=== PATIENT | male | born 1990 | race Caucasian/White ===

== ENCOUNTER 2020-07-08 06:37 | Emergency (ER) | payer OTHER, SELFPAY ==
--- NOTE | 2020-07-08 07:24 | ED.DENTAL ---
HPI - Dental/Oral General Chief complaint: Dental/Oral Stated complaint: dental pain Time Seen by Provider: 07/08/20 07:24 Source: patient Mode of arrival: ambulatory Limitations: no limitations History of Present Illness MD Complaint: tooth pain Location: Tooth # Teeth map: 1. Onset (ago): day(s) (2) Duration: constant Severity: severe Relieving factors: nothing Exacerbating factors: chewing, cold and heat Context: history of dental caries and poor dental care Associated symptoms: gum swelling Treatment prior to arrival: none Related Data Previous Rx's Medication Instructions Recorded amoxicillin-pot clavulanate 1 tab PO BID #14 tab 07/08/20 [Augmentin] hydrocodone-acetaminophen 1 tab PO Q6H PRN #8 tab 07/08/20 ibuprofen 600 mg PO Q6H PRN #30 tab 07/08/20 Allergies Allergy/AdvReac Type Severity Reaction Status Date / Time No Known Allergies Allergy Verified 07/08/20 07:26 Review of Systems Review of Systems: Constitutional : No Fever, No Chills ENT/Mouth : No swallowing difficulty, no change in voice, positive dental pain, positive jaw pain, no facial swelling Eyes: No Eye Pain, No Swelling Cardiovascular : No Chest Pain, No SOB Respiratory : No Cough, No Sputum Gastrointestinal : No Nausea, No Vomiting, No Diarrhea Genitourinary : No Dysuria Musculoskeletal : No Myalgias Skin : No rash Neuro : No Weakness, No Numbness, No Headache PMFSH Past Medical History Attestation statement: The following information was validated with the patient. Medical History No known health problems Social History Social History (Updated 07/08/20 @ 07:33 by Chloe Mora DO) Smoking Status: Current every day smoker Use of substances other than those prescribed or required for medical reasons: No Advance Directives: No Advance Directives Information Provided: No Physical Exam Vital Signs: Vital Signs: Last Vital Signs Temp 98.1 F 07/08/20 07:27 Pulse 54 07/08/20 07:27 Resp 16 07/08/20 07:27 BP 159/84 H 07/08/20 07:27 Pulse Ox 99 07/08/20 07:27 Body Mass Index 20.0 Appearance: Alert. Oriented X3. No acute distress. Eyes: Pupils equal, round and reactive to light. ENT: Pharynx normal. R lower last molar - cracked decayed tooth, mild gum swelling and erythema no fluctuance no sublingual or submandibular swelling Neck: Normal inspection. Neck supple. CVS: Pulses normal. Respiratory: No respiratory distress. Abdomen: Soft and nontender. Skin: Skin warm and dry. Normal skin color. Extremities: No lower extremity edema. Neuro: Oriented X 3. No motor deficit. No sensory deficit. Procedures Nerve Block Nerve Block 1: Time out performed: Yes Local Anesthetic: lidocaine 1% Amount of anesthesia used (mL): 3 Side: right Nerve Blocks: other Intraoral Nerve Block: inferior alveolar Procedure Successful: Yes Patient Tolerated Procedure: well Complications: none MDM - Dental/Oral MDM Narrative Medical decision making narrative: 29 yo male with R lower molar dental pain - no abscess noted, no concern for deeper space infection, will provide dental block start on antibiotics and refer to dentist Discharge Plan Discharge Clinical Impression: Dental caries, Toothache Patient Disposition: Home, Self-Care Instructions: Toothache (ED) Additional Instructions: return to ED for any worsening symptoms or concerns please go to the dentist as soon as possible dental block - no hot or crunchy foods til it wears off Prescriptions: New hydrocodone-acetaminophen 5-325 mg tablet 1 tab PO Q6H PRN (Reason: pain) Qty: 8 RF: 0 ibuprofen 600 mg tablet 600 mg PO Q6H PRN (Reason: pain) Qty: 30 RF: 0 amoxicillin-pot clavulanate [Augmentin] 875-125 mg tablet 1 tab PO BID Qty: 14 RF: 0 Stand Alone Forms: Work/School Release
[2020-07-08 07:27] VITALS: BP 159/84; PULSE 54; RESP 16; TEMP 36.7; O2SAT 99
[2020-07-08] MEDS: Lidocaine HCl 2 % MPF 5 ML VIAL SUBCUT (07:48)
[2020-07-08] MEDS: Amoxicillin 500 MG CAPSULE PO (07:48)
--- NOTE | 2020-07-08 07:50 | PC.NURSE ---
Dr Mora to bedside for lidocaine injected to mouth for pain relief
[2020-07-08] MEDS: HYDROcodone Bit/Acetam 5/325 TABLET 1 TAB PO (08:16)
== END 2020-07-08 08:47 | disposition home or self-care (01) ==
PROVIDERS: Emergency Provider Emergency Medicine
DX: K02.9 Dental caries, unspecified (principal); K08.89 Other specified disorders of teeth and supporting structures
CPT/HCPCS: 99283

== ENCOUNTER 2023-08-10 08:06 | Emergency (ER) | payer OTHER, SELFPAY ==
[2023-08-10 08:12] VITALS: BP 112/71; PULSE 76; RESP 18; TEMP 36.9; O2SAT 97; BMI 18.9
[2023-08-10 08:44] LABS: Appearance Urine Clear; Color Urine Yellow; Glucose Urine UA Negative (Negative); Leukocyte Esterase Urine Negative (Negative); Nitrite Urine Negative (Negative); Specific Gravity - Urine 1.015 (1.005-1.025); UMIC TRIGGER UACC YES; Urine Blood Trace (Negative); Urine Ketones Negative (Negative); Urine Protein Negative (Neg-Trace)
[2023-08-10 08:46] LABS: Bacteria Urine None Seen (None Seen); Hyaline Casts Urine 0-2 /LPF (0-2); Squamous Epithelial Cell Urine 0-2 /HPF (0-2); WBC Urine 0-5 /HPF (0-5)
[2023-08-10 08:53] LABS: Amphetamine Screen Urine Not Detected (Not Detect); Barbiturates, Urine Not Detected (Not Detect); Benzodiazepines Screen Urine Not Detected (Not Detect); Buprenorphine Scr Not Detected (Not Detect); Cannabinoid Screen Urine POSITIVE (Not Detect); Cocaine Screen Urine Not Detected (Not Detect); Fentanyl, urine POSITIVE (Not Detect); Methadone Screen, Urine Not Detected (Not Detect); Opiate Screen Urine Not Detected (Not Detect); Oxycodone Screen Urine Not Detected (Not Detect); Phencyclidine Screen Urine Not Detected (Not Detect)
[2023-08-10 09:07] VITALS: PULSE 63
--- NOTE | 2023-08-10 09:09 | ED.NAVMDI ---
HPI - Nausea/Vomiting/Diarrhea General Chief complaint: Nausea/Vomiting/Diarrhea Stated complaint: vomiting, diarrhea 24+ hours Time Seen by Provider: 08/10/23 08:19 Source: patient Mode of arrival: ambulatory Limitations: no limitations History of Present Illness ED Provider: Dr. Estevan Figueroa HPI Narrative: 32-year-old male who presents emergency department for evaluation of heroin withdrawal. The patient states he uses 10-15 bags of heroin intranasally daily. He states that he believes that he may have gotten a bad batch of heroin because he did not get his usual ?high ?. He states he last used 36 hours prior to coming to the emergency department. He states that he is feeling restless. He has body aches. He has had vomiting 3 to 4 times a day and diarrhea 10-15 times a day. He denies any blood in the emesis or diarrhea. The patient states that about a year ago he was getting Suboxone from his dealer and states that while he was using Suboxone he did not use heroin for 3 weeks. He has never been in a formal Suboxone program but states that he is interested in starting Suboxone to help with his opiate addiction. He does smoke cigarettes. He denies alcohol use. He denies other drug use. Related Data Previous Rx's ?Medication ?Instructions ?Recorded amoxicillin 875 mg-potassium 1 tab PO BID #14 tabs 07/08/20 clavulanate 125 mg tablet (Augmentin) hydrocodone 5 mg-acetaminophen 325 1 tab PO Q6H PRN pain #8 tabs 07/08/20 mg tablet ibuprofen 600 mg tablet 600 mg PO Q6H PRN pain #30 tabs 07/08/20 buprenorphine 8 mg-naloxone 2 mg 1 film buccal DAILY 3 days #6 ea 08/10/23 sublingual film (Suboxone) Allergies Allergy/AdvReac Type Severity Reaction Status Date / Time No Known Allergies Allergy Verified 08/10/23 08:17 Review of Systems Review of Systems: Yes all other systems are reviewed and are negative [facility] Past Medical History [facility] Narrative: Past medical history: None. Social history: He does smoke cigarettes. He denies alcohol use. He uses 10-15 bags of heroin intranasally daily with his last use 36 hours prior Medical History No known health problems Social History Social History (Updated 07/08/20 @ 07:33 by Marci Mora DO) Alcohol intake: former Smoked in Last 30 Days: Yes Substance Use Type: Heroin Substance Use Frequency: Chronic Longstanding Advance Directives: No Advance Directives Information Provided: Yes Physical Exam Vital Signs: Vital Signs: Last Vital Signs Temp 98.2 F 08/10/23 15:08 Pulse 62 08/10/23 15:08 Resp 18 08/10/23 15:08 BP 104/64 08/10/23 15:08 Pulse Ox 98 08/10/23 15:08 O2 Del Method Room Air 08/10/23 15:08 BMI result Body Mass Index 18.9 Vital signs were normal Exam: General: Awake, alert in no distress Head: Normocephalic, atraumatic EENT: PERRL, Lids normal, sclera normal, conjunctiva normal, nose normal , ears normal, throat without erythema or exudates Neck: Supple, no adenopathy Lung: breath sounds symmetric, no wheezing, rales or rhonchi Chest: symmetric movement, nontender Heart: regular rate and rhythm, normal S1, S2 no murmurs or rubs Abdomen: soft, non-tender, nondistended, normal bowel sounds Back: no vertebral tenderness, no CVAT Extremities: no deformities, moves all extremities symmetrically Neuro: Awake, alert, oriented, normal speech, cranial nerves intact, moves all extremities symmetrically Psych: Pleasant, cooperative Medications Administered Discontinued Medications Generic Name Dose Route Start Last Admin Trade Name Freq PRN Reason Stop Dose Admin Buprenorphine/Naloxone 1 film 08/10/23 09:07 08/10/23 09:18 Buprenorphine/Naloxone 4/1 Mg Film SUBLINGUAL 08/10/23 09:08 1 film ONCE ONE Administration Buprenorphine/Naloxone 1 film 08/10/23 10:11 08/10/23 10:19 Buprenorphine/Naloxone 4/1 Mg Film SUBLINGUAL 08/10/23 10:12 1 film ONCE ONE Administration Sodium Chloride 1,000 mls @ 999 mls/hr 08/10/23 09:07 08/10/23 10:20 Ns IV 08/10/23 10:07 Infused .Q1H1M STA Infusion Potassium Chloride 10 meq in 100 mls @ 100 mls/hr 08/10/23 10:15 08/10/23 15:07 Potassium Chloride/H20 IV 08/10/23 14:14 Infused Q1H LALITA Infusion Ketorolac Tromethamine 15 mg 08/10/23 09:07 08/10/23 09:19 Ketorolac Tromethamine 15 Mg/Ml Vial IVPUSH 08/10/23 09:08 15 mg ONCE STA Administration Ondansetron HCl 4 mg 08/10/23 09:07 08/10/23 09:19 Ondansetron Hcl 4 Mg/2 Ml Vial IVPUSH 08/10/23 09:08 4 mg ONCE ONE Administration Potassium Chloride 40 meq 08/10/23 10:11 08/10/23 10:19 Potassium Chloride Packet 20 Meq Packet PO 08/10/23 10:12 40 meq ONCE ONE Administration Medical Decision Making Medical Decision Making MDM Narrative: 32-year-old male who presents emergency department for evaluation of heroin withdrawal. The patient states he uses 10-15 bags of heroin intranasally daily. He states that he believes that he may have gotten a bad batch of heroin because he did not get his usual ?high ?. He states he last used 36 hours prior to coming to the emergency department. He states that he is feeling restless. He has body aches. He has had vomiting 3 to 4 times a day and diarrhea 10-15 times a day. He denies any blood in the emesis or diarrhea. Vital signs were normal. Physical examination was unremarkable. Differential diagnosis: ?Includes but is not limited to opiate withdrawal, viral syndrome, electrolyte abnormalities, anemia Following evaluation was ordered: CBC, CMP, lipase, urinalysis, drug screen urine Patient was initially treated with the following: Suboxone 4 mg/1 mg, Zofran 4 mg IV, Toradol 15 mg IV, normal saline x1 L Course: 15:46 My interpretation patient's laboratory evaluation is as follows: CBC was normal. Potassium was critically low at 2.7. Urinalysis revealed trace blood. Microscopic revealed 3-5 RBCs with no bacteria. Urine tox screen was positive for fentanyl and THC I did discuss the bridging treatment protocol for Suboxone with the patient and states he does want to start Suboxone now and pursue long-term treatment with Suboxone as an outpatient. I initiated medication-assisted treatment for the patient in the Emergency Department. I gave the patient a dose of Suboxone 4 mg/1 mg for the treatment of the patient?s opioid use disorder and he received 2 doses in the emergency department with improvement of his withdrawal symptoms. I provided counseling and positive reinforcement to help encourage the patient?s success and gave the patient a 3 day supply of Suboxone. The patient will be referred to our [facility] for medication-assisted treatment for his opiate a use disorder and to provide continuing care and support. The patient agrees to follow up for further care and treatment. Admission/Observation Consideration of admission/observation: Escalation of care including admission/observation considered Lab Data MDM Lab Attestation statement: I reviewed the patient's lab results. 08/10/23 09:16 08/10/23 09:16 Labs: Lab Results 08/10/23 08/10/23 Range/Units 08:36 09:16 WBC 10.6 (4.8-10.8) X10*3/uL RBC 4.92 (4.60-5.80) X10*6/uL Hgb 15.9 (14.0-18.0) g/dl Hct 42.5 (42.0-52.0) % MCV 86.4 (80.0-98.0) fL MCH 32.3 (27.0-33.0) pg MCHC 37.4 H (31.0-36.0) g/dl RDW 11.5 (11.0-16.0) % Plt Count 366 (160-400) X10*3/uL MPV 9.5 (9.4-12.4) fL Immature Gran % (Auto) 0.3 (0.0-0.4) % Neut % (Auto) 72.1 (45-73) % Lymph % (Auto) 14.9 L (20-40) % [place] % (Auto) 12.5 H (2-11) % Eos % (Auto) 0.0 (0-4) % Baso % (Auto) 0.2 (0-2) % Lymph # (Auto) 1.6 (1.2-4.9) X10*3/uL [place] # (Auto) 1.3 H (0.1-1.2) X10*3/uL Eos # (Auto) 0.0 (0.0-0.4) X10*3/uL Baso # (Auto) 0.0 (0.0-0.2) X10*3/uL Abs Immat Gran (auto) 0.03 (0.00-0.03) X10*3/uL Absolute Neuts (auto) 7.6 (2.0-8.3) x10*3/uL Absolute Nucleated RBC 0.000 (0.0-0.012) X10*3/uL Nucleated RBC % (auto) 0.0 (0.0-0.2) /100WBC Sodium 139 (135-145) mmol/L Potassium 2.7 L* (3.3-5.1) mmol/L Chloride 101 (96-108) mmol/L Carbon Dioxide 28 (22-29) mmol/L Anion Gap 13 (12-20) BUN 11 (9-16) mg/dL Creatinine 0.80 (0.5-1.4) mg/dL Estim Creat Clear Calc 111.2 Estimated GFR > 60 Random Glucose 134 H (60-115) mg/dL Calcium 9.9 (8.4-10.2) mg/dL Magnesium 2.1 (1.6-2.6) mg/dL Total Bilirubin 1.0 (0.0-1.0) mg/dL AST 18 (5-37) U/L ALT 16 (0-40) U/L Alkaline Phosphatase 90 (39-117) U/L Total Protein 7.9 (6.5-8.0) g/dL Albumin 4.9 (3.5-5.0) g/dL Lipase 36 (8-78) U/L Urine Color Yellow Urine Appearance Clear Urine pH 7.0 (5.0-9.0) Ur Specific [place] 1.015 (1.005-1.025) Urine Protein Negative (Neg-Trace) mg/dL Urine Glucose (UA) Negative (Negative) mg/dL Urine Ketones Negative (Negative) mg/dL Urine Blood Trace H (Negative) Urine Nitrite Negative (Negative) Ur Leukocyte Esterase Negative (Negative) Urine RBC 3-5 H (0-2) /HPF Urine WBC 0-5 (0-5) /HPF Ur Squamous Epith Cells 0-2 (0-2) /HPF Urine Bacteria None Seen (None Seen) Hyaline Casts 0-2 (0-2) /LPF Urine Opiates Screen Not Detected (Not Detect) Ur Buprenorphine Scrn Not Detected (Not Detect) ng/mL Ur Oxycodone Screen Not Detected (Not Detect) ng/mL Urine Methadone Screen Not Detected (Not Detect) ng/mL Urine Fentanyl Screen POSITIVE H (Not Detect) Ur Barbiturates Screen Not Detected (Not Detect) Ur Phencyclidine Scrn Not Detected (Not Detect) Ur Amphetamines Screen Not Detected (Not Detect) U Benzodiazepines Scrn Not Detected (Not Detect) Urine Cocaine Screen Not Detected (Not Detect) U Marijuana (THC) Screen POSITIVE H (Not Detect) Prescription Management I considered prescription management with: Other (Suboxone) Chronic Conditions Patient?s care impacted by: Other (Narcotic use disorder) Critical Care Time Critical Care Time Critical Care Time: Yes Total Critical Care Time: 45 Attestation: Critical Care: The patient was critically ill with a high probability of imminent or life threatening deterioration. I spent greater than 30 minutes of discontinuous time evaluating the patient,delivering critical care at the bedside, discussing and evaluating pertinent data with consultants. Critical care time does not include time spent performing separately billable procedures or teaching. Total time spent performing critical care was 45 minutes. Discharge Plan Discharge Clinical Impression: Opiate withdrawal, Acute hypokalemia Opiate dependence Qualifiers: Substance use status: in withdrawal Qualified Code(s): F11.23 - Opioid dependence with withdrawal Vomiting Qualifiers: Vomiting type: unspecified Nausea presence: with nausea Qualified Code(s): R11.2 - Nausea with vomiting, unspecified Diarrhea Qualifiers: Diarrhea type: unspecified type Qualified Code(s): R19.7 - Diarrhea, unspecified Patient Disposition: Home, Self-Care Instructions: Opioid Use Disorder (ED) Additional Instructions: Your blood work revealed a low potassium, this was due to your vomiting and diarrhea. You were given both IV and oral potassium. You should increase your fluid intake and food intake to help correct your low potassium and your dehydration. You did receive Suboxone 4 mg/1 mg x 2 doses here in the emergency department If you feel like you are withdrawing again this evening you can take a Suboxone 8 mg/2 mg sublingually. Otherwise start your next dose tomorrow morning. I am giving you a 3 day supply of Suboxone. It is important that you contact our [facility] to give follow-up within 3 days so that you can get started in their Suboxone program. Suboxone use instructions Start with a moist mouth, avoid acidic drinks (coffee or fruit juice) Avoid using nicotine products as this interferes with absorption Avoid speaking while the sublingual medication is in the mouth Keep dissolving medicine under tongue Don?t swallow until entire tablet or film is dissolved( only 5 % of swallowed buprenorphine is absorbed while 30 % is absorbed in the mouth). Note: It takes ~ 5-days to reach steady state. Patients may experience mild withdrawal symptoms during that time period Prescriptions: New buprenorphine-naloxone [Suboxone] 8-2 mg film 1 film buccal DAILY 3 Days Qty: 6 0RF No Action hydrocodone-acetaminophen 5-325 mg tablet 1 tab PO Q6H PRN (Reason: pain) Qty: 8 0RF ibuprofen 600 mg tablet 600 mg PO Q6H PRN (Reason: pain) Qty: 30 0RF amoxicillin-pot clavulanate [Augmentin] 875-125 mg tablet 1 tab PO BID Qty: 14 0RF Print Language: [place]
[2023-08-10] MEDS: Buprenorphine/Naloxone 4/1 mg FILM 1 FILM SUBLINGUAL ×2 (09:18→10:19)
[2023-08-10] MEDS: ondansetron HCL 4 MG/2 ML VIAL IVPUSH (09:19)
[2023-08-10] MEDS: 0.9 % Sodium Chloride 1,000 ML 999 ML IV (09:19)
[2023-08-10] MEDS: Ketorolac Tromethamine 15 MG/ML VIAL IVPUSH (09:19)
[2023-08-10 09:21] LABS: MANUAL DIFF FLAG NO
[2023-08-10 09:23] LABS: Basophils Percent Auto 0.2 % (0-2); Hematocrit 42.5 % (42.0-52.0); Hemoglobin 15.9 g/dl (14.0-18.0); Imm Gran Abs Auto 0.03 X10*3/uL (0.00-0.03); Imm Gran Pct Auto 0.3 % (0.0-0.4); Lymphocytes Absolute Auto 1.6 X10*3/uL (1.2-4.9); Lymphocytes Percent Auto 14.9 % (20-40); Mean Corpuscular HGB Conc 37.4 g/dl (31.0-36.0); Mean Corpuscular Hemoglobin 32.3 pg (27.0-33.0); Mean Corpuscular Volume 86.4 fL (80.0-98.0); Mean Platelet Volume 9.5 fL (9.4-12.4); Monocytes Absolute Auto 1.3 X10*3/uL (0.1-1.2); Monocytes Percent Auto 12.5 % (2-11); Neutrophils Absolute Auto 7.6 x10*3/uL (2.0-8.3); Neutrophils Percent Auto 72.1 % (45-73); Platelet Count 366 X10*3/uL (160-400); Red Blood Count 4.92 X10*6/uL (4.60-5.80); Red Cell Distribution Width 11.5 % (11.0-16.0); White Blood Count 10.6 X10*3/uL (4.8-10.8)
[2023-08-10 09:40] LABS: Alanine Aminotransferase 16 U/L (0-40); Albumin Level 4.9 g/dL (3.5-5.0); Alkaline Phosphatase 90 U/L (39-117); Anion Gap 13 (12-20); Aspartate Amino Transferase 18 U/L (5-37); Blood Urea Nitrogen 11 mg/dL (9-16); Calcium 9.9 mg/dL (8.4-10.2); Carbon Dioxide 28 mmol/L (22-29); Chloride 101 mmol/L (96-108); Creatinine Clr Calc Pharmacy 111.2; Estimated Glomerular Filt Rate > 60; Glucose Random 134 mg/dL (60-115); Lipase 36 U/L (8-78); Potassium 2.7 mmol/L (3.3-5.1); Sodium 139 mmol/L (135-145); Total Protein 7.9 g/dL (6.5-8.0)
--- NOTE | 2023-08-10 10:10 | PC.NURSE ---
Alert and oriented, medicated per mar. reports feeling better but still experiencing withdrawal symptoms , provider notified
[2023-08-10] MEDS: Potassium Chloride Packet 20 MEQ PACKET 40 MEQ PO (10:19)
[2023-08-10] MEDS: Potassium Chloride/H20 10 MEQ/100 ML PIGGYBACK 100 MEQ IV ×4 (10:24→13:33)
[2023-08-10 10:43] LABS: Magnesium 2.1 mg/dL (1.6-2.6)
[2023-08-10 10:55] VITALS: BP 101/64; PULSE 64; RESP 20; TEMP 37.4; O2SAT 98
--- NOTE | 2023-08-10 11:10 | PC.NURSE ---
Reports feeling better, no episodes of nausea or vomiting
[2023-08-10 14:07] VITALS: BP 101/64; PULSE 53; RESP 16; TEMP 36.8; O2SAT 99
[2023-08-10 15:08] VITALS: BP 104/64; PULSE 62; RESP 18; TEMP 36.8; O2SAT 98
--- NOTE | 2023-08-10 16:05 | PC.NURSE ---
Alert and oriented, reports feeling much better, vss good po intake
[2023-08-10 16:10] VITALS: BP 104/64; PULSE 62; RESP 18; TEMP 36.8; O2SAT 98
== END 2023-08-10 16:10 | disposition home or self-care (01) ==
PROVIDERS: Emergency Provider Emergency Medicine Emergency Medical Services
DX: F11.23 Opioid dependence with withdrawal (principal); E87.6 Hypokalemia; R11.2 Nausea with vomiting, unspecified; R19.7 Diarrhea, unspecified
CPT/HCPCS: 36415; 80053; 80307; 81001; 83690; 83735; 85025; 96361; 96365; 96366; 96375; 99285; J1885; J2405; J3480

== ENCOUNTER 2023-08-13 10:56 | Outpatient (AMB) | payer OTHER, SELFPAY ==
--- NOTE | 2023-08-13 11:31 | A.OFFVISCC_ITS ---
Vital Signs 08/13/23 11:40 BP 124/88 Blood Pressure Location Lt brachial Position Sitting Respiration 16 Pulse 65 Pulse Source Pulse Oximeter Pulse Oximetry (%) 98 Oxygen Delivery Method Room Air Intake Visit Reasons: MAT Intake Allergies No Known Allergies Allergy (Verified 08/10/23 08:17) HPI HPI MAT Intake: Details: Patient presents for continuation of treatment following ED visit where he was started on Suboxone ED notes reviewed and nursing intake Reports he is tolerating suboxone dose, but is still experiencing some anxiety and body aches. Denies constipation Reports sleep impaired--however this is a chronic issue Denies any history of IVDU family ETOH history Denies any previous treatment history social history -single and lives with a roommate -works FT -identifies his mother as support BH History: -some therapy but no history of medications -endorses poor sleep as mentioned above, variable appetite, anxiety and overall feelings of sadness PFSH Medical History No known health problems Social History (Updated 07/08/20 @ 07:33 by Marci Mora DO) Alcohol intake: former Substance Use Type: Heroin Review of Systems Const Reports as per HPI Physical Exam Vital Signs: Last Vital Signs Pulse 65 08/13/23 11:40 Resp 16 08/13/23 11:40 BP 124/88 08/13/23 11:40 Pulse Ox 98 08/13/23 11:40 Oxygen Delivery Method Room Air 08/13/23 11:40 Const General: cooperative and anxious Nutritional Appearance: average body habitus Limitations: no limitations Skin General skin exam: no rashes or lesions noted Psych Appearance: grossly normal Speech and movement: Normal speech and movement present Affect: Anxious affect present Attitude: cooperative Thought process: Normal thought process present Thought content: Normal thought content present Insight: Good insight present (Psych) Judgement: Good judgement present (Psych) Assessment & Plan Assessment & Plan (1) Opioid use disorder, moderate, dependence: Code(s): F11.20 - Opioid dependence, uncomplicated Category: Medical Plan: * increase suboxone dose to 3 films daily. advised patient to take btwn 1/2 to a whole film in addition to current dose * relapse prevention discussion * agreeable to mirtazipine trial * follow up one week Medications: New mirtazapine 7.5 mg PO BEDTIME 7 tabs 0RF Changed From buprenorphine-naloxone 8-2 mg (Suboxone) 1 film buccal DAILY 3 days 6 ea 0RF To buprenorphine-naloxone 8-2 mg (Suboxone) 1 film buccal TID 21 ea 0RF Discontinued hydrocodone-acetaminophen 5-325 mg Discontinued Reason: Patient Completed Course 1 tab PO Q6H PRN 8 tabs 0RF pain amoxicillin-pot clavulanate 875-125 mg (Augmentin) Discontinued Reason: Patient Completed Course 1 tab PO BID 14 tabs 0RF MAT Intake Nursing Intake Reason for visit: Continuation of MAT received in ER Are you currently using?: Yes What are you taking?: Suboxone 8mg, heroin When was your last use?: suboxone this AM, heroin 24 hours ago How much?: suboxone 8mg, heroin 10 bags What is your source of income?: employed What is your current relationship status?: single Current PCP: N/A Date of last visit: can not recall Referral Source: ER Details: Pt received bridge suboxone in ER and was referred to clinic for ongoing rahul atment. Substance Abuse History Substance Abuse History (includes route, frequency and quantity): Heroin, Buprenorphine/naloxone, Oxycodone product, Alcohol and Tobacco Age of first use: first used Percocet's approx 27y.o. Changed to heroin approximately 1 year ago due to cost. Social History Domestic Violence concerns: N/A Children: none Do you have a support system?: yes, family Current mode of transportation?: public transportation Where are you currently residing?: apartment. LMP: N/A Details: topic not discussed as pt reports he is not currently sexually active. IV Drug Use Have you ever shared needles?: No Have you ever belonged to a needle exchange program?: No Do you buy needles at a pharmacy?: No Have you ever overdosed?: No Number of lifetime overdoses: 0 Have you ever been hospitalized for an overdose?: No Was Naloxone administered?: Not applicable Recovery History Have you had any periods of recovery?: Yes What is your longest time in recovery?: 5 years for alcohol, 1 month for opiates When was the last time you were in recovery?: approx 1 year ago for opiates- was buying suboxone on the street and was able to maintain sobriety until two close family/friend deaths. Then returned to use. Have you ever had inpatient treatment for your substance abuse disorder?: No Have you been in an inpatient detoxification program?: No Have you been in an inpatient Rehab/[facility] house?: No Have you been in an outpatient Methadone Maintenance program?: No Have you been in an outpatient Suboxone Maintenance program?: No Have you been in an AA/NA support program?: Yes Have you had a Recovery Support Blacksmith Assistant?: No Have you had Peer Support?: No Details: Information and education supplied to pt re: harm reduction, OD prevention and therapy/learning coach resources. Behavioral Health History Do you have a current provider? If so, who?: No diagnosis: N/A History of other addictive behavior: gambling-scratch tickets History of inpatient psychiatric hospitalization? If so, how many? Most Recent? Where?: No History of self harming thoughts?: Yes (Pt reports thoughts at times that he would be better off (especially when using) but denies any current SI or intent/plan to hurt self.) History of homicidal or suicidal intentions?: No Medical Conditions Endocarditis?: No Skin Infection: No Seizure related to withdrawal or overdose: No Head or brain injury: No Hepatitis A (if yes, have you been treated?): No Hepatitis B (if yes, have you been treated?): No Hepatitis C (if yes, have you been treated?): No HIV (if yes, have you been treated?): No TB (if yes, have you been treated?): No Other: No Do you have any chronic pain conditions?: lower back pain Details: I just think it is normal, everyday, pain Legal History History of incarceration: Yes (Pt has been arrested x 2 for DUI's. He is currently off probation for both.) Currently on parole or probation: No Court mandated programs: No Pending court cases: No DCF involvement: No
[2023-08-13 11:40] VITALS: BP 124/88; PULSE 65; RESP 16; O2SAT 98
== END 2023-08-13 12:00 | disposition home or self-care (01) ==
PROVIDERS: Visit Provider Nurse Practitioner Psychiatric/Mental Health
DX: F11.20 Opioid dependence, uncomplicated (principal)
CPT/HCPCS: 99204

== ENCOUNTER → 2023-08-13 10:56 | Outpatient (BNVA) | payer OTHER, SELFPAY | PROVIDERS: Visit Provider Nurse Practitioner Psychiatric/Mental Health | DX: F11.20 Opioid dependence, uncomplicated (principal) | CPT/HCPCS: 99202 ==

== ENCOUNTER 2023-08-19 08:54 | Outpatient (AMB) | payer OTHER, SELFPAY ==
--- NOTE | 2023-08-19 09:00 | A.OFFVISCC_ITS ---
Intake Visit Reasons: MAT visit Allergies No Known Allergies Allergy (Verified 08/10/23 08:17) HPI HPI MAT visit: Details: Patient presents for follow up Started Mirtazipine 7.5mg --has been falling asleep easier. Some grogginess, but that is subsiding Tolerating increase in Suboxone --cravings have decreased some Reviewed some strategies for when cravings present. Occasional constipation --has medicaiton at home Minimal decrease in anxiety PFSH Medical History No known health problems Social History (Updated 07/08/20 @ 07:33 by Marci Mora DO) Alcohol intake: former Substance Use Type: Heroin Review of Systems Const Reports as per HPI Physical Exam Const General: cooperative, healthy appearing and no acute distress Nutritional Appearance: thin Orientation/consciousness: patient oriented x3 Limitations: no limitations Neuro General: patient oriented x3 Psych Appearance: grossly normal Speech and movement: Clear speech present Affect: normal affect (slightly blunted) Attitude: cooperative and Guarded attititude/behavior present Thought process: Normal thought process present Thought content: Normal thought content present Insight: Fair insight present (Psych) Judgement: Good judgement present (Psych) Assessment & Plan Assessment & Plan (1) Opioid use disorder, moderate, dependence: Code(s): F11.20 - Opioid dependence, uncomplicated Category: Medical Plan: * continue suboxone at current dose --refilled medicaiton * follow up one week with RN via telehealth * provider follow up end of the month (due to vacation) Medications: Refilled buprenorphine-naloxone 8-2 mg (Suboxone) 1 film buccal TID 42 ea 1RF mirtazapine 7.5 mg PO BEDTIME 30 tabs 0RF
== END 2023-08-19 09:15 | disposition home or self-care (01) ==
PROVIDERS: Visit Provider Nurse Practitioner Psychiatric/Mental Health
DX: F11.20 Opioid dependence, uncomplicated (principal)
CPT/HCPCS: 99214

== ENCOUNTER → 2023-08-19 08:54 | Outpatient (BNVA) | payer OTHER, SELFPAY | PROVIDERS: Visit Provider Nurse Practitioner Psychiatric/Mental Health | DX: F11.20 Opioid dependence, uncomplicated (principal) | CPT/HCPCS: 99212 ==

== ENCOUNTER 2023-10-18 10:57 | Outpatient (AMB) | payer OTHER, SELFPAY ==
--- NOTE | 2023-10-18 11:24 | A.OFFVISCC_ITS ---
Intake Visit Reasons: MAT visit Allergies No Known Allergies Allergy (Verified 08/10/23 08:17) HPI HPI MAT visit: Details: Patient presents for follow up Has not been seen in 2 months Reports he has been taking suboxone 8mg in AM and 8mg in evening -- unclear how often as he has not filled a script since July He reports he continues to use to deal with work, I hate my job, I hate people irritable affect, tearful during visit--guarded discussed patient's goals and he was unable to verbalize any. discussed depressive sx. patient aware of them but does not wish to address [facility] Medical History No known health problems Social History (Updated 07/08/20 @ 07:33 by Marci Mora DO) Alcohol intake: former Substance Use Type: Heroin Review of Systems Const Reports as per HPI Physical Exam Const General: alert and awake Nutritional Appearance: average body habitus Limitations: no limitations Psych Speech and movement: Clear speech present Affect: Sad affect present and Irritable affect present Attitude: Guarded attititude/behavior present Insight: Fair insight present (Psych) Judgement: Fair judgement present (Psych) Assessment & Plan Assessment & Plan (1) Opioid use disorder, moderate, dependence: Code(s): F11.20 - Opioid dependence, uncomplicated Category: Medical Plan: * patent to make follow up appt when he is ready to * has refill on current script * overdose prevention discussion
== END 2023-10-18 13:35 | disposition home or self-care (01) ==
PROVIDERS: Visit Provider Nurse Practitioner Psychiatric/Mental Health
DX: F11.20 Opioid dependence, uncomplicated (principal)
CPT/HCPCS: 99214

== ENCOUNTER → 2023-10-18 10:57 | Outpatient (BNVA) | payer OTHER, SELFPAY | PROVIDERS: Visit Provider Nurse Practitioner Psychiatric/Mental Health | DX: F11.20 Opioid dependence, uncomplicated (principal) | CPT/HCPCS: 99212 ==